=== PATIENT | female | born 1965 | race Caucasian/White ===

== ENCOUNTER 2018-01-06 23:12 | Emergency (ER) | payer BC ==
[2018-01-06] MEDS ORDERED: Ibuprofen TAB* 600 MG PO ONE (23:43)
--- NOTE | 2018-01-06 23:47 | ED ---
Upper Extremity Pain - HPI Summary HPI Summary: A 52 y/o female accompanied by family presents to ED s/p fall and c/o left wrist pain. Currently, the patient is experiencing left wrist pain reaching 3/ 10 in severity. As per triage, "Patient presents with left wrist pain after fall on tile floor". According to the patient, she slipped and caught herself on her left arm. She noticed some swelling in her left wrist. No other medical issues at this time. - History of Current Complaint Chief Complaint: EDExtremityUpper Stated Complaint: LT HAND INJURY Time Seen by Provider: 01/06/18 23:36 Hx Obtained From: Patient Mechanism Of Injury: Fall From A Standing Position - SLIPPED Onset/Duration: Started Hours Ago Timing: Constant Severity Initially: Mild - 3/10 Severity Currently: Mild - 3/10 Pain Location: Wrist - LEFT Aggravating Factor(s): Movement Alleviating Factor(s): Nothing Associated Signs & Symptoms: Positive: Swelling, Redness - Allergies/Home Medications Allergies/Adverse Reactions: Allergies Allergy/AdvReac Type Severity Reaction Status Date / Time Penicillins Allergy Hives Verified 01/07/18 00:03 PMH/Surg Hx/FS Hx/Imm Hx Endocrine/Hematology History: Denies: Hx Diabetes Cardiovascular History: Denies: Hx Hypertension - Surgical History Surgery Procedure, Year, and Place: no prior surgeries noted Infectious Disease History: No Infectious Disease History: Denies: Traveled Outside the [place] in Last 30 Days - Family History Known Family History: Negative: Hypertension - Social History Alcohol Use: None Substance Use Type: Reports: None Smoking Status (MU): Never Smoked Tobacco Review of Systems Negative: Fever Positive: Other - POSITIVE: LEFT WRIST PAIN All Other Systems Reviewed And Are Negative: Yes Physical Exam - Summary Physical Exam Summary: Appearance: Well appearing, no pain distress Skin: warm, dry, reflects adequate perfusion. Head/face: normal Eyes: EOMI, TRUDY ENT: normal Neck: supple, non-tender Respiratory: CTA, breath sounds present Cardiovascular: RRR, pulses symmetrical Abdomen: non-tender, soft Musculoskeletal: normal, strength/ROM intact. Swelling in left lower extremity in the lateral aspect with tenderness. No neurovascular deficit. Neuro: normal, sensory motor intact, A&Ox3 Triage Information Reviewed: Yes Vital Signs On Initial Exam: Initial Vitals Temp Pulse Resp BP Pulse Ox 98.5 F 77 20 105/60 99 01/06/18 23:13 01/06/18 23:13 01/06/18 23:13 01/06/18 23:13 01/06/18 23:13 Vital Signs Reviewed: Yes Procedures - Splinting Left Upper Extremity Hand-Made Type: orthoglass Splint: volar Pre-Proc Neuro Vasc Exam: normal Post-Proc Neuro Vasc Exam: normal - no complications Diagnostics - Vital Signs Vital Signs Temp Pulse Resp BP Pulse Ox 01/06/18 23:13 98.5 F 77 20 105/60 99 - Laboratory Lab Statement: Any lab studies that have been ordered have been reviewed, and results considered in the medical decision making process. - Radiology WRIST XR Radiology Interpretation Completed By: ED Physician - RADIAL FRACTURE. PENDING OFFICIAL REPORT. Re-Evaluation - Re-Evaluation First Eval Re-Evaluation Time: 23:56 Change: Unchanged Comment: DISCUSSED LEFT WRIST XR RESULTS. Course/Dx - Course Course Of Treatment: A 52 y/o female accompanied by family presents to ED s/p fall and c/o left wrist pain. Currently, the patient is experiencing left wrist pain reaching 3/10 in severity. As per triage, "Patient presents with left wrist pain after fall on tile floor". According to the patient, she slipped and caught herself on her left arm. She noticed some swelling in her left wrist. No other medical issues at this time. Physical exam revealed swelling in left lower extremity in the lateral aspect with tenderness. No neurovascular deficit. A left wrist XR revealed radial fracture. No hematology or urinalysis was done. In the ED course, the patient recieved Percocet and Motrin. The patient was placed in a splint. Patient will be discharged with a diagnosis of wrist fracture and radial fracture. Patient will be sent home with prescriptions for Motrin and Percocet. Patient is to follow up with Orthopedics in 2-3 days. Patient is to return to ED for any new or worsening symptoms. - Diagnoses Differential Diagnosis/HQI/PQRI: Positive: Contusion, Fracture (Closed), Sprain Provider Diagnoses: Wrist fracture, Radial fracture Discharge - Sign-Out/Discharge Documenting (check all that apply): Patient Departure - DISCHARGE - Discharge Plan Condition: Stable Disposition: HOME Prescriptions: Ibuprofen TAB* [Motrin TAB* 600 MG] 600 mg PO Q8H PRN #20 tab MDD 3 PRN Reason: Pain Oxycodone HCl/Acetaminophen [Percocet] 1 tab PO TID #15 tab MDD 3 Patient Education Materials: Wrist Fracture in Adults (ED) Referrals: [facility] [Outside] - 3 Days Birdie Daly MD [Medical Doctor] - 3 Days Additional Instructions: FOLLOW UP WITH ORTHOPEDICS IN 2-3 DAYS. TAKE MEDICATIONS PRESCRIBED. RETURN TO ED FOR ANY NEW OR WORSENING SYMPTOMS. - Billing Disposition and Condition Condition: STABLE Disposition: Home - Attestation Statements Document Initiated by Alexandrae: Yes Documenting Scribe: Donavan Ellis Provider For Whom Madiha is Documenting (Include Credential): Darci Bruce MD Scribe Attestation: Donavan Euceda scribed for Darci Bruce MD on 01/07/18 at 0151. Scribe Documentation Reviewed: Yes Provider Attestation: The documentation as recorded by the Donavan morataya accurately reflects the service I personally performed and the decisions made by Darci vazquez MD Status of Scribe Document: Viewed
[2018-01-07] MEDS ORDERED: oxyCODONE/Acetamin 5/325 MG* TAB PO ONE (00:04)
[2018-01-07 00:51] VITALS: BP 111/64
== END 2018-01-07 00:50 | disposition home or self-care (01) ==
LOC: ED 23:12
DX: S52.502A Unspecified fracture of the lower end of left radius, initial encounter for closed fracture (principal); W01.0XXA Fall on same level from slipping, tripping and stumbling without subsequent striking against object, initial encounter; Y92.9 Unspecified place or not applicable; Z88.0 Allergy status to penicillin
CPT/HCPCS: 99282; A9270-GY